=== PATIENT | female | born 2000 | race Caucasian/White ===

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

== ENCOUNTER 2021-08-17 17:30 | Emergency (ER) | payer OTHER ==
[2021-08-17 17:53] VITALS: BP 132/71; PULSE 105; TEMP 98.5; BMI 38.2
[2021-08-18 12:12] LABS: SARS-CoV-2 NAA Not Detected (Not Detected)
== END 2021-08-17 18:17 | disposition home or self-care (01) ==
LOC: JER 17:30
DX: O99.512 Diseases of the respiratory system complicating pregnancy, second trimester (principal); R09.81 Nasal congestion; R05.1 Acute cough; Z3A.24 24 weeks gestation of pregnancy
CPT/HCPCS: 87804; 99283-25; C9803-CS; U0003; U0005

== ENCOUNTER 2021-10-18 21:00 | Inpatient (IN) | payer OTHER ==
[2021-10-18] MEDS ORDERED: BUTORPHANOL TARTRATE 1 MG/ML VIAL IVPB ONE (22:00)
[2021-10-18] MEDS ORDERED: DINOPROSTONE 10 MG VAGINAL SUPPOSITORY VG STA (22:02)
[2021-10-18] MEDS: ELECTROLYTE-148 SOLN 1,000 ML IV SCH (22:30)
[2021-10-18 22:53] LABS: BASO % 0.1 % (0-2.0); HEMATOCRIT 32.4 % (32.4-45.2); HEMOGLOBIN 11.3 GM/dL (10.7-15.3); LYMPH % 12.9 % (8-40); MCH 31.9 pg (25.7-33.7); MCHC 34.7 g/dl (32.0-36.0); MEAN CELL VOLUME 91.7 fl (80-96); MEAN PLT VOLUME 8.1 fl (7.5-11.1); MONO % 9.3 % (3.8-10.2); NEUT % 77.7 % (42.8-82.8); PLATELET COUNT 257 10^3/uL (134-434); RBC 3.53 M/mm3 (3.60-5.2); WHITE BLOOD COUNT 11.6 K/mm3 (4.0-10.0)
[2021-10-18 23:03] LABS: INR 0.9 (0.83-1.09); PROTHROMBIN TIME (PATIENT) 10.3 SEC (9.7-13.0)
[2021-10-18 23:05] LABS: ACTIVATED PTT 25.5 SECONDS (25.2-36.5)
[2021-10-18] MEDS ORDERED: LABETALOL HCL 200 MG TABLET (FP) ONE (23:20)
[2021-10-18] MEDS: LABETALOL HCL 200 MG TABLET (FP) PO SCH (23:25)
[2021-10-19 00:04] LABS: CALCIUM 9.3 mg/dL (8.5-10.1)
[2021-10-19 00:05] LABS: ALBUMIN 2.5 g/dl (3.4-5.0)
[2021-10-19 00:06] LABS: CREATININE 0.7 mg/dL (0.55-1.3)
[2021-10-19 00:08] LABS: TOT PROT 6.2 g/dl (6.4-8.2)
[2021-10-19 00:25] LABS: BLOOD UREA NITROGEN 12.9 mg/dL (7-18)
[2021-10-19 00:32] LABS: BILIRUBIN,TOTAL 0.2 mg/dL (0.2-1)
[2021-10-19 02:05] VITALS: BMI 43.2
[2021-10-19] MEDS ORDERED: LABETALOL HCL 200 MG TABLET (FP) ONE ×2 (09:58→22:13)
[2021-10-19] MEDS: LABETALOL HCL 200 MG TABLET (FP) PO SCH ×2 (10:00→22:15)
[2021-10-19] MEDS ORDERED: DINOPROSTONE 10 MG VAGINAL SUPPOSITORY VG ONE (12:00)
[2021-10-19] MEDS ORDERED: NIFEdipine E.R. 30 MG TABLET ONE (14:19)
[2021-10-19] MEDS: NIFEdipine E.R. 30 MG TABLET PO SCH (14:30)
[2021-10-19] MEDS ORDERED: NIFEdipine E.R. 30 MG TABLET PO SCH (16:45)
[2021-10-19] MEDS: ELECTROLYTE-148 SOLN 1,000 ML IV SCH (19:00)
[2021-10-19] MEDS ORDERED: AMPICILLIN SODIUM 2 GM VIAL ONE (20:31)
[2021-10-19] MEDS ORDERED: AMPICILLIN - 2 GM in SODIUM CHLORIDE 100 ML IVPB ONE (21:17)
[2021-10-19] MEDS ORDERED: BUTORPHANOL TARTRATE 1 MG/ML VIAL IVPUSH PRN (21:19)
[2021-10-19] MEDS ORDERED: PROMETHAZINE HCL 25 MG/1 ML VIAL IVPUSH ONE (21:19)
[2021-10-20] MEDS ORDERED: AMPICILLIN SODIUM 1 GM VIAL ONE ×2 (00:53→04:53)
[2021-10-20] MEDS: AMPICILLIN - 1 GM in SODIUM CHLORIDE 100 ML IVPB SCH ×6 (00:55→22:41)
[2021-10-20] MEDS ORDERED: ELECTROLYTE-148 SOLN 1,000 ML IV SCH (02:45)
[2021-10-20] MEDS ORDERED: OXYTOCIN 30 UNITS in 0.9% NS 30 UNIT/500 ML INFUS.BAG IVPB SCH (02:45)
[2021-10-20] MEDS ORDERED: BUPIVACAINE HCL/PF 0.25% (2.5MG/ML) 10 ML VIAL ONE (05:19)
[2021-10-20] MEDS ORDERED: FENTANYL/BUPIVACAINE/NS/PF - PCEA - 50 ML DISP.SYRIN EP ONE (05:38)
[2021-10-20] MEDS: FENTANYL/BUPIVACAINE/NS/PF - PCEA - 50 ML DISP.SYRIN EP SCH (05:40)
[2021-10-20] MEDS ORDERED: NALOXONE HCL 0.4 MG/ML VIAL IVPUSH PRN (06:17)
[2021-10-20] MEDS ORDERED: LIDOCAINE HCL/EPINEPHRINE/PF 20 ML VIAL ONE (07:37)
[2021-10-20] MEDS ORDERED: morphine SULFATE/PF 1 MG/2 ML (2cc Syringe - QUVA) ONE ×2 (07:46→08:00)
[2021-10-20 08:33] LABS: CORD BASE EXCESS -4.7 mmol/L (0-2); CORD HCO3 22.4 mmHg (20-29); CORD PCO2 48.8 mmHg (30-78); CORD pH 7.28 (7.14-7.44)
[2021-10-20 08:36] LABS: CORD HCO3 24.2 mmHg (20-29); CORD PCO2 61.5 mmHg (30-78); CORD pH 7.213 (7.14-7.44)
[2021-10-20] MEDS ORDERED: METHYLERGONOVINE MALEATE 0.2 MG/1 ML AMP IM PRN (08:42)
[2021-10-20] MEDS ORDERED: OXYTOCIN 20 UNITS in 0.9% NS 20 UNIT/1,000 ML INFUS.BAG IV SCH (08:45)
[2021-10-20] MEDS ORDERED: ONDANSETRON 4 MG/2 ML VIAL IVPUSH PRN (08:50)
[2021-10-20] MEDS: CEFAZOLIN SODIUM 2 GM in DEXTROSE 5%-WATER 100 ML IVPB SCH ×2 (09:52→18:25)
[2021-10-20] MEDS ORDERED: ceFAZolin 2 GRAM PREMIX BAG IVPB SCH (10:00)
[2021-10-20] MEDS: LABETALOL HCL 200 MG TABLET (FP) PO SCH (10:02)
[2021-10-20] MEDS ORDERED: OXYTOCIN 20 UNITS in 0.9% NS 20 UNIT/1,000 ML INFUS.BAG IV ONE (10:07)
[2021-10-20] MEDS ORDERED: NIFEdipine E.R. 30 MG TABLET ONE (10:07)
[2021-10-20] MEDS: NIFEdipine E.R. 30 MG TABLET PO SCH (10:13)
[2021-10-20] MEDS ORDERED: LABETALOL HCL 200 MG TABLET (FP) PO PRN (10:25)
[2021-10-20] MEDS: IBUPROFEN 800 MG/8 ML IJ IVPB PRN (11:18)
[2021-10-20] MEDS ORDERED: oxyCODONE HCL 5 MG TABLET PO PRN ×2 (20:42)
[2021-10-21] MEDS: CEFAZOLIN SODIUM 2 GM in DEXTROSE 5%-WATER 100 ML IVPB SCH (01:50)
[2021-10-21] MEDS: AMPICILLIN - 1 GM in SODIUM CHLORIDE 100 ML IVPB SCH ×3 (02:39→19:49)
[2021-10-21] MEDS: IBUPROFEN 800 MG/8 ML IJ IVPB PRN (04:05)
[2021-10-21] MEDS: SIMETHICONE 80 MG TAB.CHEW (FP) PO PRN ×2 (04:05→21:07)
[2021-10-21 08:26] LABS: BASO % 0.2 % (0-2.0); EOS % 0.4 % (0-4.5); HEMATOCRIT 29.6 % (32.4-45.2); HEMOGLOBIN 10.1 GM/dL (10.7-15.3); LYMPH % 12.6 % (8-40); MCH 32.3 pg (25.7-33.7); MCHC 34.2 g/dl (32.0-36.0); MEAN CELL VOLUME 94.5 fl (80-96); MEAN PLT VOLUME 7.9 fl (7.5-11.1); MONO % 8.6 % (3.8-10.2); NEUT % 78.2 % (42.8-82.8); PLATELET COUNT 193 10^3/uL (134-434); RBC 3.14 M/mm3 (3.60-5.2); RDW 14.4 % (11.6-15.6); WHITE BLOOD COUNT 11.1 K/mm3 (4.0-10.0)
[2021-10-21] MEDS ORDERED: BISACODYL 10 MG SUPP.RECT RC PRN (08:42)
[2021-10-21] MEDS: NIFEdipine E.R. 30 MG TABLET PO SCH (10:30)
[2021-10-21] MEDS: ACETAMINOPHEN 325 MG TABLET (FP) PO PRN ×2 (14:48→20:45)
[2021-10-21] MEDS: IBUPROFEN 600 MG TABLET (FP) PO PRN (17:27)
[2021-10-21] MEDS: FENTANYL/BUPIVACAINE/NS/PF - PCEA - 50 ML DISP.SYRIN EP SCH (19:49)
[2021-10-22] MEDS: NIFEdipine E.R. 30 MG TABLET PO SCH (10:35)
[2021-10-22] MEDS: SIMETHICONE 80 MG TAB.CHEW (FP) PO PRN (18:21)
[2021-10-22] MEDS: IBUPROFEN 600 MG TABLET (FP) PO PRN (18:21)
[2021-10-23 08:15] LABS: BASO % 0.4 % (0-2.0); EOS % 1.4 % (0-4.5); HEMATOCRIT 28.1 % (32.4-45.2); HEMOGLOBIN 9.9 GM/dL (10.7-15.3); LYMPH % 20.8 % (8-40); MCH 32.5 pg (25.7-33.7); MCHC 35.2 g/dl (32.0-36.0); MEAN CELL VOLUME 92.4 fl (80-96); MEAN PLT VOLUME 7.3 fl (7.5-11.1); MONO % 9.1 % (3.8-10.2); NEUT % 68.3 % (42.8-82.8); PLATELET COUNT 257 10^3/uL (134-434); RBC 3.04 M/mm3 (3.60-5.2); RDW 13.8 % (11.6-15.6)
[2021-10-23] MEDS: NIFEdipine E.R. 30 MG TABLET PO SCH (10:36)
[2021-10-23 15:04] VITALS: BP 141/87; PULSE 83; TEMP 99.1
== END 2021-10-23 14:10 | disposition home or self-care (01) | DRG 540 ==
LOC: JDEL 21:00 → JLDR 21:38 → J3W 10-20 10:40
PROVIDERS: ADMIT Obstetrics & Gynecology; ATTEND Obstetrics & Gynecology
PROC: 3E0P7VZ Introduction of Hormone into Female Reproductive, Via Natural or Artificial Opening (ICD-10-PCS; 2021-10-18)
PROC: 10D00Z1 Extraction of Products of Conception, Low, Open Approach (ICD-10-PCS; principal; 2021-10-20)
PROC: 10907ZC Drainage of Amniotic Fluid, Therapeutic from Products of Conception, Via Natural or Artificial Opening (ICD-10-PCS; 2021-10-20)
DX: O14.04 Mild to moderate pre-eclampsia, complicating childbirth (principal); O61.0 Failed medical induction of labor; O77.0 Labor and delivery complicated by meconium in amniotic fluid; O76 Abnormality in fetal heart rate and rhythm complicating labor and delivery; O99.214 Obesity complicating childbirth; E66.01 Morbid (severe) obesity due to excess calories; Z3A.39 39 weeks gestation of pregnancy; Z37.0 Single live birth
CPT/HCPCS: 36415; 36600; 59025; 76805-TC; 80053; 82570; 82803; 82962; 82977; 83010; 84156; 84450; 84460; 84550; 85025; 85045; 85610; 85730; 86780; 86850; 86900; 86901; 88307-TC; 96372; C9803-CS; G0463-25; U0003; U0005